=== PATIENT | male | born 1980 | race Hispanic/Latino ===

== ENCOUNTER 2017-07-27 07:32 | Observation (INO) | payer SELFPAY ==
[~2017-07-27] VITALS: Ht 172.7 cm; Wt 110.0 kg
[~2017-07-27 07:32] MED LIST: ASA81EC PO; ASPIR 8181 MG PO; BACTRIM DS TAB1 EACH PO; CHLORDIAZEPOXID25 MG PO; GLUCOTROL5 MG PO; JANUVIA100 MG PO; LEVEMIR100 UNIT/1 SC; METFORMIN HCL500 MG PO; PEPCID20 MG PO; SERTRALINE HCL50 MG PO; insulin
[2017-07-27 08:39] LABS: BASOPHILS # (AUTO) 0.1 (0.0-0.1); EOSINOPHILS # (AUTO) 0.2 (0.0-0.4); EOSINOPHILS % 2.4 % (0.0-6.0); HEMATOCRIT 47.5 % (38.2-49.6); HEMOGLOBIN 17.4 g/dL (14.0-18.0); LYMPHOCYTES # (AUTO) 1.7 (1.0-3.2); LYMPHOCYTES % 18.8 % (18.0-39.1); MEAN CORPUSCULAR HEMOGLOBIN 30.9 pg (28-32); MEAN CORPUSCULAR HGB CONC 36.6 g/dL (31-35); MEAN CORPUSCULAR VOLUME 84.2 fL (81-99); MONOCYTES # (AUTO) 0.7 (0.2-0.8); MONOCYTES % 7.1 % (4.4-11.3); NEUTROPHILS # (AUTO) 6.3 (2.1-6.9); NEUTROPHILS % 68.9 % (38.7-80.0); PLATELET COUNT 293 x10e3/uL (140-360); RED BLOOD COUNT 5.64 x10e6/uL (4.3-5.7); RED CELL DISTRIBUTION WIDTH 12.2 % (11.7-14.4)
[2017-07-27 08:45] LABS: PROTHROMBIN TIME 12.4 seconds (11.9-14.5)
[2017-07-27] MEDS ORDERED: ASPIRIN 325 MG TAB PO ONE (08:45)
[2017-07-27] MEDS ORDERED: NITROGLYCERIN 2% OINT 1 GM PKT TOP ONE (08:45)
[2017-07-27 08:46] LABS: PARTIAL THROMBOPLASTIN TIME 27.8 seconds (23.8-35.5)
[2017-07-27 08:52] LABS: ALANINE AMINOTRANSFERASE 18 IU/L (0-55); ALBUMIN 3.7 g/dL (3.5-5.0); ALKALINE PHOSPHATASE 117 IU/L (40-150); ANION GAP 11.9 mmol/L (8-16); BLOOD UREA NITROGEN 16 mg/dL (7-26); BUN/CREATININE RATIO 19 (6-25); CALCIUM 9.7 mg/dL (8.4-10.2); CARBON DIOXIDE 25 mmol/L (22-29); CHLORIDE 103 mmol/L (98-107); CREATINE KINASE 98 IU/L (30-200); CREATININE, SERUM 0.84 mg/dL (0.72-1.25); EST GLOMERULAR FILTRATION RATE > 60 ML/MIN (60-); GLUCOSE 325 mg/dL (74-118); POTASSIUM 3.9 mmol/L (3.5-5.1); SODIUM 136 mmol/L (136-145)
--- NOTE | 2017-07-27 09:02 | Diagnostic Imaging Report ---
PROCEDURE: A single AP view of the chest. COMPARISON: Portable chest 03/19/2015. INDICATIONS: CHEST PAIN FINDINGS: Lines/tubes: None. Lungs: The lungs are well inflated and clear. There is no evidence of pneumonia or pulmonary edema. Pleura: There is no pleural effusion or pneumothorax. Heart and mediastinum: The heart and the mediastinum are unremarkable. Bones: No acute bony abnormality. Degenerative changes of the thoracic spine. IMPRESSION: No acute radiographic abnormality. Dictated by: Kalia Thomas M.D. on 07/27/2017 at 9:04 Electronically approved by: Kalia Thomas M.D. on 07/27/2017 at 9:04
[2017-07-27 09:51] LABS: BILIRUBIN,URINE NEGATIVE (NEGATIVE); CLARITY,URINE CLEAR (CLEAR); COLOR,URINE YELLOW (YELLOW); KETONES,URINE NEGATIVE (NEGATIVE); LEUKOCYTE ESTERASE ,URINE NEGATIVE (NEGATIVE); NITRITE,URINE NEGATIVE (NEGATIVE); PROTEIN,URINE DIPSTICK NEGATIVE (NEGATIVE); URINE UROBILINOGEN 0.2 mg/dL (0.2 - 1)
[2017-07-27] MEDS ORDERED: ACETAMINOPHEN 325 MG TAB PO ONE (10:00)
[2017-07-27 10:06] LABS: EPITHELIAL CELLS,URINE RARE /LPF; RBC,URINE 0-5 /HPF (0-5)
[2017-07-27] MEDS ORDERED: MORPHINE SULFATE 2 MG/ML SYR IV STA (10:38)
[2017-07-27] MEDS ORDERED: ONDANSETRON HCL 4 MG ORAL DISINTEGRATING TAB PO ONE (10:45)
[2017-07-27] MEDS ORDERED: DEXTROSE 50% SYRINGE 50 ML IV PRN (11:00)
[2017-07-27] MEDS ORDERED: METOPROLOL TARTRATE 25 MG TAB PO SCH (11:00)
[2017-07-27] MEDS ORDERED: FAMOTIDINE 20 MG TAB PO SCH (11:00)
[2017-07-27] MEDS ORDERED: ENOXAPARIN SODIUM INJ 100 MG/ML SYR SC SCH (11:00)
[2017-07-27] MEDS ORDERED: MORPHINE SULFATE 2 MG/ML SYR IV PRN (11:00)
[2017-07-27] MEDS ORDERED: NITROGLYCERIN 0.4 MG SUBL SL PRN (11:00)
[2017-07-27] MEDS ORDERED: ONDANSETRON HCL INJ 2 MG/ML VIAL IV PRN (11:00)
[2017-07-27] MEDS ORDERED: SODIUM CHLORIDE FLUSH 10 ML SYR INJ PRN (11:00)
[2017-07-27 11:26] LABS: AMPHETAMINES SCREEN,URINE NEGATIVE (NEGATIVE); BENZODIAZEPINES SCREEN,URINE NEGATIVE (NEGATIVE); PHENCYCLIDINE SCREEN,URINE NEGATIVE (NEGATIVE)
[2017-07-27] MEDS: INSULIN REGULAR, HUMAN 100 UNIT/1 ML 3ML VIAL SQ SCH ×2 (11:34→15:52)
--- NOTE | 2017-07-27 11:36 | History and Physical ---
CHIEF COMPLAINT: Chest pain. HISTORY OF PRESENT ILLNESS: This is a 36-year-old, man who presents to [facility] Emergency Room with a 1-week history of chest discomfort. Patient states the pain starts in his interscapular area and radiates to his retrosternal chest area. The patient states the chest pain is also associated with left arm numbness. Moreover, he complains of shortness of breath, diaphoresis, and nausea with this chest pain. In the emergency room, a 12-lead EKG was unremarkable. The patient had a chest x-ray, which was also normal. The patient's initial cardiac enzymes were unremarkable as well as blood chemistries. The patient's complete blood count was also normal. The patient admits to smoking marijuana on a regular basis. He is also on insulin therapy for his diabetes mellitus, but he admits to not checking his glucose levels at home. REVIEW OF SYSTEMS GENERAL: Weight has been stable. No fever or chills. HEENT: No headache. No vision changes. CARDIOVASCULAR: Chest pain as per HPI associated with nausea, diaphoresis and shortness of breath. The patient states 3 weeks ago he did have upper respiratory tract infection. GI: Complains of nausea with the chest pain but no vomiting. : No UTI or BPH. NEUROMUSCULAR: Complains of left arm numbness and coldness with this chest discomfort. ALLERGIES: NO KNOWN DRUG ALLERGIES. MEDICATIONS 1. Metformin 1,000 mg b.i.d. 2. Sertraline 50 mg daily. 3. Insulin therapy, unknown brand or dose. According to the records, the patient was actually on Humalog insulin 10 units subcutaneous t.i.d. with meals. 4. Lisinopril 10 mg daily. PAST MEDICAL HISTORY 1. Hypertensive heart disease. 2. Type-2 diabetes mellitus. 3. Obesity. 4. Depression. 5. Previous heavy alcohol drinker. 6. Chronic marijuana smoker. SURGICAL HISTORY 1. Laparoscopic cholecystectomy in 1994. 2. Vasectomy. FAMILY HISTORY: Mother and sister with diabetes mellitus. SOCIAL HISTORY: This man is and lives with his . He does smoke tobacco. The patient was a previous heavy alcohol drinker but has been abstinent for at least 1 year. The patient states he does smoke marijuana on a daily basis. PHYSICAL EXAMINATION GENERAL: He is awake, alert and fully oriented. He is very pleasant and cooperative with exam. VITAL SIGNS: Blood pressure 145/94. On arrival in the emergency room, it was 151/99. Pulse 85, respiratory rate 18, oxygen saturation 100% on room air. Temperature 98.1. Height is 5 feet 8 inches. Weight is 242 pounds. Calculated body mass index is 36. INTEGUMENT: Skin is warm and dry. No pallor, jaundice or diaphoresis. HEENT: Anicteric sclerae with moist mucous membranes. NECK: Supple. CARDIOVASCULAR: Tachycardic heart rate. Regular rate and rhythm. The patient has an S4 gallop. LUNGS: No rales. No rhonchi. No wheezes. ABDOMEN: Obese, yet benign. EXTREMITIES: No edema or deformity. NEUROLOGIC: Intact. DIAGNOSES 1. Angina. 2. Uncontrolled, type-2 diabetes mellitus. 3. Hypertensive heart disease. 4. Obesity. Calculated body mass index 36. 5. Chronic marijuana smoker. PLAN 1. Rule out myocardial infarction. 2. Consult cardiology. 3. Start aspirin therapy. 4. Start subcutaneous Lovenox therapy. 5. Highly recommend the patient quit smoking marijuana. 6. Blood glucose control. I spent 40 minutes in the care of this patient. Job#: [id number]
--- OUTSIDE RECORDS SUMMARY | 2017-07-27 11:39 | XMS REPORT ---
Author Author [facility] Address Unknown Phone Unavailable Care Team Providers Care Mail Carrier And Clerk Name Role Phone MRAY DUNLAP Unavailable Unavailable Problems This patient has no known problems. Allergies, Adverse Reactions, Alerts This patient has no known allergies or adverse reactions. Medications This patient has no known medications. Results Test Description Test Time Test Comments Text Results Atomic Results Result Comments CHEST SINGLE (PORTABLE) [place] [address] Patient Name: NIVIA WALKER MR #: [id number] : 1980 Age/Sex: 36/M Req #: [id number] Adm Physician: Ordered by: MARY DUNLAP MD Report #: [id number] Location: ER Room/Bed: Procedure: [id number] DX/CHEST SINGLE (PORTABLE) Exam Date: 07/27/17 Exam Time: 0835 REPORT STATUS: Signed PROCEDURE: A single AP view of the chest. COMPARISON: Portable chest 03/19/2015. INDICATIONS: CHEST PAIN FINDINGS: Lines/tubes: None. Lungs : The lungs are well inflated and clear. There is no evidence of pneumonia or pulmonary edema. Pleura: There is no pleural effusion or pneumothorax. Heart and mediastinum: The heart and the mediastinum are unremarkable. Bones: No acute bony abnormality. Degenerative changes of the thoracic spine. IMPRESSION: No acute radiographic abnormality. Dictated by: Marcia Benton M.D. on 07/27/2017 at 9:04 Electronically approved by: Marcia Benton M.D. on 07/27/2017 at 9:04 Dictated By: MARCIA BENTON MD 3 COPY TO: MARY DUNLAP MD
[2017-07-27] MEDS ORDERED: LANTUS 3ML100 UNITS/ SC (11:40)
[2017-07-27] MEDS ORDERED: NITROGLYCERIN 2% OINT 1 GM PKT TOP SCH ×2 (12:00→15:00)
[2017-07-27] MEDS ORDERED: ONDANSETRON HCL 4 MG ORAL DISINTEGRATING TAB PO PRN (15:15)
[2017-07-27 15:40] VITALS: BP 128/68
[2017-07-27] MEDS ORDERED: ASPIR 8181 MG (15:49)
[2017-07-27 15:57] LABS: CREATINE KINASE 95 IU/L (30-200)
[2017-07-27 16:00] VITALS: BP 128/68
--- NOTE | 2017-07-27 18:43 | Cardiology Report ---
DATE OF STUDY: July 27, 2017 PROCEDURE TITLE Rest stress single isotope SPECT imaging with pharmacologic stress and gated SPECT imaging. INDICATIONS: Chest pain. PROCEDURE: Patient performed treadmill exercise using a Jose L protocol, exercising for 11 minutes 31 seconds to stage 4 and completing estimated work load of 12.8 metabolic equivalents (METs). The test was terminated due to fatigue. The heart rate was 92 beats per minute at rest and increased to 176 beats per minute at peak exercise, which was 96% of maximum predicted heart rate. The rest blood pressure was 110/84 and increased to 166/79 mmHg, which is a normal response. The patient did not develop any symptoms other than fatigue during the procedure. The resting electrocardiogram demonstrated normal sinus rhythm with right bundle branch block. There were no ST-T-wave changes consistent with myocardial ischemia. Myocardial perfusion imaging was performed at rest following the injection of 11 mCi of tetrofosmin. At peak pharmacologic effect, the patient was injected with 33 millicuries of tetrofosmin. Exercise was continued for 1 minute. Gated post stress tomographic imaging was performed. The overall quality of the study is good. Left ventricular cavity is noted to be normal size on the rest and stress images. SPECT images demonstrate homogeneous tracer distribution throughout the myocardium. The gated SPECT imaging reveals normal myocardial thickening and wall motion. Left ventricular ejection fraction calculated to be 51%. IMPRESSION: Normal clinical hemodynamic and ECG exercise stress test. Myocardial perfusion imaging is normal. Overall left ventricular systolic function was normal without regional wall motion abnormalities. Job#: [id number]
[2017-07-27 20:00] VITALS: BP 100/55
[2017-07-27 21:14] LABS: CREATINE KINASE 88 IU/L (30-200)
--- NOTE | 2017-07-27 21:17 | Consultation ---
DATE OF CONSULTATION: July 27, 2017 CARDIOLOGY CONSULTATION REQUESTING PHYSICIAN: Dr. Tommy Fishman REASON FOR CONSULTATION: Chest pain. HISTORY OF PRESENT ILLNESS: This is a 36-year-old man with history of diabetes mellitus, who presents with complaint of chest pain. The patient reports he has been having chest pressure for the last week. The pain occurs off and on lasting minutes at a time and is associated with shortness of breath, nausea, and diaphoresis. The pain is 8/10-9/10 in severity and can occur both at rest and with exertion. He denies any edema, orthopnea or PND. REVIEW OF SYSTEMS: Negative except as per HPI. PAST MEDICAL HISTORY 1. Diabetes mellitus. 2. Hypertension. 3. Marijuana use. 4. Obesity. PAST SURGICAL HISTORY 1. Cholecystectomy. 2. Vasectomy. SOCIAL HISTORY: No tobacco or alcohol use. He does smoke marijuana. FAMILY HISTORY: No family history of heart disease. ALLERGIES: PLEASE SEE EMR. MEDICATIONS: Please see medication list. PHYSICAL EXAM VITAL SIGNS: Temperature 98.1 degrees, pulse 86, respiratory rate 16, blood pressure 145/94, oxygen saturation 100% on room air. GENERAL: Well-developed, well-nourished man, in no acute distress. HEENT: Normocephalic, atraumatic. Pupils are equal. No scleral icterus. NECK: Supple. No thyromegaly or cervical lymphadenopathy. No carotid bruits. LUNGS: Clear to auscultation bilaterally. No wheezes or crackles. CARDIOVASCULAR: Normal rate, regular rhythm. No murmur. Normal S1 and S2. ABDOMEN: Soft, nontender. EXTREMITIES: No edema. NEURO: Nonfocal exam. EKG: Normal sinus rhythm. Right bundle-branch block. LAB: WBC 7.19, hemoglobin 17.4, hematocrit 47.5, platelets 293,000. Sodium 136, potassium 3.9, chloride 103, CO2 25, BUN 16, creatinine 0.84. Troponin less than 0.001. Urine drug screen negative. Chest x-ray, no acute radiographic abnormality. IMPRESSIONS 1. Chest pain. 2. Hypertension. 3. Obesity. 4. Diabetes mellitus. RECOMMENDATIONS: No evidence of myocardial infarction on serial cardiac biomarkers thus far given his risk factors. Ischemic evaluation is warranted with treadmill nuclear stress. Will obtain echocardiogram. Continue current cardiac medications, otherwise. Thank you for this consult. We will continue to follow. Job#: [id number] CQ
[2017-07-28] MEDS ORDERED: ASPIRIN 81 MG ENTERIC COATED PO SCH (09:00)
[2017-07-28] MEDS ORDERED: LISINOPRIL 10 MG TAB PO SCH (09:00)
== END 2017-07-27 22:23 | disposition home or self-care (01) ==
LOC: ER 07:32 → ERHOLD 11:37 → MED/SURG3 12:43
PROVIDERS: ADMIT Internal Medicine; ATTEND Internal Medicine
DX: I20.9 Angina pectoris, unspecified (principal); E11.65 Type 2 diabetes mellitus with hyperglycemia; E66.9 Obesity, unspecified; I11.9 Hypertensive heart disease without heart failure; F12.10 Cannabis abuse, uncomplicated; Z68.36 Body mass index [BMI] 36.0-36.9, adult
CPT/HCPCS: 36415; 71045; 78452; 80053; 80061; 80307; 81001; 82550; 82553; 82948; 83880; 84484; 85025; 85610; 85730; 93005; 93017; 93306; 99284; A9502; G0378; J1650; J2270

== ENCOUNTER 2021-05-18 14:04 | Emergency (ER) | payer BC ==
[~2021-05-18] VITALS: Ht 172.7 cm; Wt 127.2 kg
[~2021-05-18 14:04] MED LIST changes: +ASPIR 8181 MG; +LANTUS 3ML100 UNITS/ SC
[2021-05-18] MEDS ORDERED: ONDANSETRON HCL INJ 2MG/ML 2ML 2 MG/ML VIAL IV STA (14:18)
[2021-05-18] MEDS ORDERED: SODIUM CHLORIDE 0.9% 1000ML 1,000 ML IV STA (14:18)
[2021-05-18 14:29] LABS: BASOPHILS % 0.3 % (0.0-1.0); EOSINOPHILS # (AUTO) 0.1 (0.0-0.4); EOSINOPHILS % 0.5 % (0.0-6.0); HEMATOCRIT 42.7 % (38.2-49.6); HEMOGLOBIN 14.7 g/dL (14.0-18.0); LYMPHOCYTES # (AUTO) 1.2 (1.0-3.2); LYMPHOCYTES % 10.5 % (18.0-39.1); MEAN CORPUSCULAR HEMOGLOBIN 30.5 pg (28-32); MEAN CORPUSCULAR HGB CONC 34.4 g/dL (31-35); MEAN CORPUSCULAR VOLUME 88.6 fL (81-99); MONOCYTES % 8.6 % (4.4-11.3); NEUTROPHILS # (AUTO) 9.1 (2.1-6.9); NEUTROPHILS % 79.2 % (38.7-80.0); PLATELET COUNT 320 x10e3/uL (140-360); RED BLOOD COUNT 4.82 x10e6/uL (4.3-5.7)
[2021-05-18 14:43] LABS: INR 0.97; PROTHROMBIN TIME 13.6 seconds (11.9-14.5)
[2021-05-18 14:44] LABS: PARTIAL THROMBOPLASTIN TIME 30.5 seconds (23.8-35.5)
[2021-05-18 14:51] LABS: ALBUMIN 3.4 g/dL (3.5-5.0); ALBUMIN/GLOBULIN RATIO 0.9 (0.8-2.0); ANION GAP 14.7 mmol/L (8-16); CALCIUM 8.9 mg/dL (8.4-10.2); CREATININE, SERUM 1.38 mg/dL (0.72-1.25); MAGNESIUM 1.8 MG/DL (1.3-2.1); POTASSIUM 3.7 mmol/L (3.5-5.1)
[2021-05-18 14:58] LABS: CREATINE KINASE MB 2.5 ng/mL (0-5.0)
[2021-05-18 15:37] LABS: CLARITY,URINE HAZY (CLEAR); COLOR,URINE YELLOW (YELLOW); KETONES,URINE 1+ (NEGATIVE); LEUKOCYTE ESTERASE ,URINE NEGATIVE (NEGATIVE); NITRITE,URINE NEGATIVE (NEGATIVE); PROTEIN,URINE DIPSTICK >=300 (NEGATIVE); URINE UROBILINOGEN 0.2 mg/dL (0.2 - 1)
[2021-05-18 15:38] LABS: BACTERIA,URINE FEW /HPF; EPITHELIAL CELLS,URINE FEW /LPF
[2021-05-18] MEDS ORDERED: CEFTRIAXONE 1 GM in SODIUM CHLORIDE 0.9% 50ML 50 ML IV ONE (15:45)
[2021-05-18 17:45] VITALS: BP 160/93
== END 2021-05-18 17:55 | disposition home or self-care (01) ==
LOC: ER 14:21
DX: R31.9 Hematuria, unspecified (principal); N39.0 Urinary tract infection, site not specified; R11.2 Nausea with vomiting, unspecified; E11.65 Type 2 diabetes mellitus with hyperglycemia; R53.1 Weakness; Z20.822 Contact with and (suspected) exposure to COVID-19
CPT/HCPCS: 36415; 71045; 74176; 80053; 81001; 82550; 82553; 82948; 83735; 83880; 84484; 85025; 85610; 85730; 87086; 99284; C9113; J0696; J2405; J7030; U0002; 93005